=== PATIENT | female | born 1930 | race Caucasian/White ===

== ENCOUNTER 2016-04-25 13:52 | Outpatient (RCR) | payer OTHER | END 2016-05-23 | disposition home or self-care (01) | LOC: PTY 13:52 | PROVIDERS: ATTEND Internal Medicine | DX: M51.37 Other intervertebral disc degeneration, lumbosacral region (principal) | CPT/HCPCS: 97110; G0283 ==

== ENCOUNTER 2016-05-29 14:30 | Outpatient (RCR) | payer OTHER | END 2016-06-20 | disposition home or self-care (01) | LOC: PTY 14:30 | PROVIDERS: ATTEND Internal Medicine | DX: M51.37 Other intervertebral disc degeneration, lumbosacral region (principal); M54.2 Cervicalgia | CPT/HCPCS: 97110; G0283 ==

== ENCOUNTER 2016-06-22 15:07 | Outpatient (RCR) | payer OTHER | END 2016-07-21 | disposition home or self-care (01) | LOC: PTY 15:07 | PROVIDERS: ATTEND Internal Medicine | DX: M51.37 Other intervertebral disc degeneration, lumbosacral region (principal); M54.2 Cervicalgia | CPT/HCPCS: 97110; G0283 ==

== ENCOUNTER 2016-08-03 14:30 | Outpatient (RCR) | payer OTHER | END 2016-08-20 | disposition home or self-care (01) | LOC: PTY 14:30 | DX: M54.2 Cervicalgia (principal); M25.511 Pain in right shoulder | CPT/HCPCS: 97110; 97161; G0283 ==

== ENCOUNTER 2016-08-22 13:45 | Outpatient (RCR) | payer OTHER | END 2016-09-20 | disposition home or self-care (01) | LOC: PTY 13:45 | DX: M54.2 Cervicalgia (principal); M25.511 Pain in right shoulder | CPT/HCPCS: 97110; 97140; G0283 ==

== ENCOUNTER 2016-09-22 13:25 | Outpatient (RCR) | payer OTHER | END 2016-10-20 | disposition home or self-care (01) | LOC: PTY 13:25 | DX: M54.2 Cervicalgia (principal); M25.511 Pain in right shoulder | CPT/HCPCS: 97110; 97140; G0283 ==

== ENCOUNTER 2016-10-31 13:03 | Outpatient (RCR) | payer OTHER | END 2016-11-20 | disposition home or self-care (01) | LOC: PTY 13:03 | DX: M54.2 Cervicalgia (principal); M25.511 Pain in right shoulder | CPT/HCPCS: 97110; 97140; G0283 ==

== ENCOUNTER 2016-11-02 13:00 | Outpatient (RCR) | payer OTHER | END 2016-11-20 | disposition home or self-care (01) | LOC: PTY 13:00 | PROVIDERS: ATTEND Internal Medicine | DX: M51.37 Other intervertebral disc degeneration, lumbosacral region (principal); M47.816 Spondylosis without myelopathy or radiculopathy, lumbar region | CPT/HCPCS: 97110; 97140; 97161; G0283 ==

== ENCOUNTER 2016-12-14 12:25 | Outpatient (RCR) | payer OTHER | END 2016-12-21 | disposition home or self-care (01) | LOC: PTY 12:25 | PROVIDERS: ATTEND Internal Medicine | DX: M25.562 Pain in left knee (principal); M25.561 Pain in right knee; M81.0 Age-related osteoporosis without current pathological fracture; M19.90 Unspecified osteoarthritis, unspecified site | CPT/HCPCS: 97110; 97161; G0283 ==

== ENCOUNTER 2016-12-19 12:57 | Outpatient (RCR) | payer OTHER | END 2016-12-21 | disposition home or self-care (01) | LOC: PTY 12:57 | PROVIDERS: ATTEND Internal Medicine | DX: M51.37 Other intervertebral disc degeneration, lumbosacral region (principal); M47.816 Spondylosis without myelopathy or radiculopathy, lumbar region | CPT/HCPCS: 97110; 97140; G0283 ==

== ENCOUNTER 2017-01-09 12:55 | Outpatient (RCR) | payer OTHER | END 2017-01-20 | disposition home or self-care (01) | LOC: PTY 12:55 | PROVIDERS: ATTEND Internal Medicine | DX: M25.562 Pain in left knee (principal); M25.561 Pain in right knee; M81.0 Age-related osteoporosis without current pathological fracture; M19.90 Unspecified osteoarthritis, unspecified site; M25.511 Pain in right shoulder; M54.2 Cervicalgia; M51.37 Other intervertebral disc degeneration, lumbosacral region; M47.816 Spondylosis without myelopathy or radiculopathy, lumbar region; M54.30 Sciatica, unspecified side | CPT/HCPCS: 97110; G0283 ==

== ENCOUNTER 2017-01-18 13:57 | Outpatient (RCR) | payer OTHER | END 2017-01-20 | disposition home or self-care (01) | LOC: PTY 13:57 | PROVIDERS: ATTEND Internal Medicine | DX: M51.37 Other intervertebral disc degeneration, lumbosacral region (principal); M47.816 Spondylosis without myelopathy or radiculopathy, lumbar region; M19.90 Unspecified osteoarthritis, unspecified site; I48.91 Unspecified atrial fibrillation; F41.9 Anxiety disorder, unspecified; M81.0 Age-related osteoporosis without current pathological fracture | CPT/HCPCS: 97110; G0283 ==

== ENCOUNTER 2017-02-01 13:00 | Outpatient (RCR) | payer OTHER | END 2017-02-20 | disposition home or self-care (01) | LOC: PTY 13:00 | PROVIDERS: ATTEND Internal Medicine | DX: M51.37 Other intervertebral disc degeneration, lumbosacral region (principal); M47.816 Spondylosis without myelopathy or radiculopathy, lumbar region; S16.1XXD Strain of muscle, fascia and tendon at neck level, subsequent encounter | CPT/HCPCS: 97110; G0283 ==

== ENCOUNTER → 2017-02-20 | Outpatient (RCR) | payer OTHER | END | disposition home or self-care (01) | LOC: PTY 01-25 13:00 | PROVIDERS: ATTEND Internal Medicine | DX: S16.1XXD Strain of muscle, fascia and tendon at neck level, subsequent encounter (principal); M51.37 Other intervertebral disc degeneration, lumbosacral region; M47.816 Spondylosis without myelopathy or radiculopathy, lumbar region | CPT/HCPCS: 97110; 97140; 97161; G0283 ==

== ENCOUNTER 2017-03-01 13:00 | Outpatient (RCR) | payer OTHER | END 2017-03-22 | disposition home or self-care (01) | LOC: PTY 13:00 | PROVIDERS: ATTEND Internal Medicine | DX: M51.37 Other intervertebral disc degeneration, lumbosacral region (principal); M47.816 Spondylosis without myelopathy or radiculopathy, lumbar region; S16.1XXD Strain of muscle, fascia and tendon at neck level, subsequent encounter; G89.29 Other chronic pain; M54.2 Cervicalgia | CPT/HCPCS: 97110; G0283 ==

== ENCOUNTER → 2017-03-22 | Outpatient (RCR) | payer OTHER | END | disposition home or self-care (01) | LOC: PTY 02-22 13:00 | PROVIDERS: ATTEND Internal Medicine | DX: S16.1XXD Strain of muscle, fascia and tendon at neck level, subsequent encounter (principal); G89.29 Other chronic pain; M54.2 Cervicalgia | CPT/HCPCS: 97110; 97140; G0283 ==

== ENCOUNTER 2017-04-05 13:00 | Outpatient (RCR) | payer OTHER | END 2017-04-22 | disposition home or self-care (01) | LOC: PTY 13:00 | PROVIDERS: ATTEND Internal Medicine | DX: S16.1XXD Strain of muscle, fascia and tendon at neck level, subsequent encounter (principal); G89.29 Other chronic pain; M54.2 Cervicalgia | CPT/HCPCS: 97110; 97140; G0283 ==

== ENCOUNTER 2017-04-19 12:00 | Outpatient (RCR) | payer OTHER | END 2017-04-22 | disposition home or self-care (01) | LOC: PTY 12:00 | PROVIDERS: ATTEND Internal Medicine | DX: M25.511 Pain in right shoulder (principal); M25.512 Pain in left shoulder; M79.672 Pain in left foot; M79.671 Pain in right foot; S16.1XXD Strain of muscle, fascia and tendon at neck level, subsequent encounter; G89.29 Other chronic pain | CPT/HCPCS: 97110; 97161; G0283 ==

== ENCOUNTER 2017-05-17 13:00 | Outpatient (RCR) | payer OTHER | END 2017-05-23 | disposition home or self-care (01) | LOC: PTY 13:00 | PROVIDERS: ATTEND Internal Medicine | DX: M25.511 Pain in right shoulder (principal); M25.512 Pain in left shoulder; S16.1XXD Strain of muscle, fascia and tendon at neck level, subsequent encounter; G89.29 Other chronic pain; M79.672 Pain in left foot; M79.671 Pain in right foot | CPT/HCPCS: 97110; 97140; G0283 ==

== ENCOUNTER 2017-05-31 13:00 | Outpatient (RCR) | payer OTHER | END 2017-06-20 | disposition home or self-care (01) | LOC: PTY 13:00 | PROVIDERS: ATTEND Internal Medicine | DX: M25.511 Pain in right shoulder (principal); M25.512 Pain in left shoulder; M79.672 Pain in left foot; M79.671 Pain in right foot | CPT/HCPCS: 97110; 97140; G0283 ==

== ENCOUNTER 2017-06-05 13:30 | Outpatient (RCR) | payer OTHER | END 2017-06-20 | disposition home or self-care (01) | LOC: PTY 13:30 | PROVIDERS: ATTEND Internal Medicine | DX: S16.1XXD Strain of muscle, fascia and tendon at neck level, subsequent encounter (principal); G89.29 Other chronic pain; M54.2 Cervicalgia; R26.89 Other abnormalities of gait and mobility ==

== ENCOUNTER 2017-06-26 15:00 | Outpatient (RCR) | payer OTHER | END 2017-07-21 | disposition home or self-care (01) | LOC: PTY 15:00 | PROVIDERS: ATTEND Internal Medicine | DX: R26.89 Other abnormalities of gait and mobility (principal) ==

== ENCOUNTER 2017-07-24 13:00 | Outpatient (RCR) | payer OTHER | END 2017-08-20 | disposition home or self-care (01) | LOC: PTY 13:00 | PROVIDERS: ATTEND Internal Medicine | DX: R26.89 Other abnormalities of gait and mobility (principal) ==

== ENCOUNTER 2017-08-28 14:08 | Outpatient (RCR) | payer OTHER | END 2017-09-20 | disposition home or self-care (01) | LOC: PTY 14:08 | PROVIDERS: ATTEND Internal Medicine | DX: R26.89 Other abnormalities of gait and mobility (principal) ==

== ENCOUNTER 2017-10-02 13:15 | Outpatient (RCR) | payer OTHER | END 2017-10-20 | disposition home or self-care (01) | LOC: PTY 13:15 | PROVIDERS: ATTEND Internal Medicine | DX: R26.89 Other abnormalities of gait and mobility (principal); M50.30 Other cervical disc degeneration, unspecified cervical region ==

== ENCOUNTER 2017-10-23 13:45 | Outpatient (RCR) | payer OTHER | END 2017-11-20 | disposition home or self-care (01) | LOC: PTY 13:45 | PROVIDERS: ATTEND Internal Medicine | DX: R26.89 Other abnormalities of gait and mobility (principal); M50.30 Other cervical disc degeneration, unspecified cervical region ==

== ENCOUNTER 2017-11-22 13:20 | Outpatient (RCR) | payer OTHER | END 2017-12-21 | disposition home or self-care (01) | LOC: PTY 13:20 | PROVIDERS: ATTEND Internal Medicine | DX: R26.89 Other abnormalities of gait and mobility (principal); M50.30 Other cervical disc degeneration, unspecified cervical region ==